=== PATIENT | male | born 1950 | race Caucasian/White ===

== ENCOUNTER → 2020-08-20 | Outpatient (CLI) | payer OTHER ==
[~2020-08-20] MED LIST: ADULT LOW DOSE81 MG PO; ASPIRIN EC325 MG PO; HYDROCHLOROTH12.5 MG PO; IBUPROFEN800 MG PO; KEFLEX500 MG PO; LANSOPRAZOLE30 MG PO; LISINOPRIL10 MG PO; LOVENOX40 MG/0.4 SQ; MEN'S MULTIVI200 MCG PO; NABUMETONE500 MG PO; PERCOCET 5-3251 EACH PO; PERCOCET 5/325 T1 EA PO; TART CHERRY EXTRACT PO; VITAMIN C500 M4 PO; VITAMIN D21250 MCG PO
== END ==
LOC: KOH-I 13:51
DX: Z47.89 Encounter for other orthopedic aftercare (principal); Z98.1 Arthrodesis status
CPT/HCPCS: 73630